=== PATIENT | male | born 1975 | race Caucasian/White ===

== ENCOUNTER 2017-05-26 15:53 | Emergency (ER) | payer OTHER ==
[~2017-05-26] VITALS: Ht 175.3 cm; Wt 96.8 kg
[~2017-05-26 15:53] MED LIST: CLR10 PO
[2017-05-26 16:02] VITALS: TEMP 36.8; Ht 175.3 cm; Wt 96.8 kg
--- NOTE | 2017-05-26 16:48 | EMERGENCY ROOM VISIT NOTE ---
History First contact with patient: 16:06 Chief Complaint: EYE ASSESSMENT Stated Complaint: SWOLLEN ITCHY EYES History of Present Illness The patient is a 42 year old male who presents to the Emergency Room with complaints of left eye swelling and itchiness. The patient states that [place] and began to develop itchiness in both of his eyes. He states that the eyes began to swell. He denies any changes in vision. He denies any pain. He took a Claritin and states that the right eye swelling has improved, but the left eye is still swollen. He has a history of seasonal allergies. He believes he is having an allergic reaction to hay. He denies any difficulty swallowing, difficulty breathing, nausea/vomiting or hives. Review of Systems A complete 10 point review of systems was reviewed with the patient with pertinent positives and negatives as per history of present illness. All else were negative. Social History Smoking Status: Never Smoker Alcohol Use: none Marital Status: Occupation Status: employed Current/Historical Medications Scheduled PRN Loratadine (Claritin), 10 MG PO DAILY PRN for Allergy Symptoms Physical Exam Vital Signs Date Time Temp Pulse Resp B/P (MAP) Pulse Ox O2 Delivery O2 Flow Rate FiO2 05/26/17 17:05 77 20 127/70 99 05/26/17 16:02 36.8 114 17 153/96 95 Room Air Right Eye Acuity: 20/20 Left Eye Acuity: 20/40 Physical Exam VITALS: Vitals are noted on the nurse's note and reviewed by myself. Vital signs stable. GENERAL: This is a 42-year-old male, in no acute distress, nondiaphoretic, well- developed well-nourished. SKIN: The skin was without rashes. EARS: External auditory canals clear, tympanic membranes pearly houser without erythema or effusion bilaterally. EYES: Pupils equal round and reactive to light and accommodation. There is periorbital edema of the left eye as well as chemosis. There is conjunctival injection. Extraocular movements are intact. There is minimal periorbital edema of the right eye. NOSE: Patent, turbinates without inflammation or discharge. MOUTH: Mucous membranes moist. Tonsils are not enlarged. Pharynx without erythema or exudate. Airway patent. NECK: Supple without nuchal rigidity. No lymphadenopathy. HEART: Regular rate and rhythm without murmurs gallops or rubs. LUNGS: Clear to auscultation bilaterally without wheezes, rales or rhonchi. NEURO: Patient was alert and oriented to person place and time. Medical Decision & Procedures Medications Administered Medications (Trade) Dose Ordered Sig/Lizzeth Route Start Time Stop Time Status Last Admin Dose Admin Diphenhydramine HCl (Benadryl Cap) 50 mg NOW STAT PO 05/26/17 16:31 05/26/17 16:33 DC 05/26/17 16:42 50 MG Prednisone (PredniSONE TAB) 50 mg NOW STAT PO 05/26/17 16:31 05/26/17 16:33 DC 05/26/17 16:42 50 MG ED Course The patient was evaluated as above. Labs were drawn and IV access was obtained. Patient was medicated with []. [] was performed and read by radiology as above. Patient was reevaluated and [] []Discharge instructions were reviewed with the patient. The patient verbalized understanding of my assessment and treatment plan and was discharged home in good condition. []Case was discussed with the [] hospitalist, []. They agreed to evaluate the patient for admission. Medical Decision Differential diagnosis includes allergic reaction, pre-orbital cellulitis, orbital cellulitis, among others. The patient was evaluated as above. His presentation is consistent with allergies. He was given a one-time dose of prednisone and instructed to take Benadryl at home for symptoms. He verbalized understanding of my assessment and treatment plan and was discharged home in good condition. Medication Reconcilliation Current Medication List: was personally reviewed by [place] Blood Pressure Screening Patient's blood pressure: Normal blood pressure Impression Primary Impression: Allergic conjunctivitis Departure Information Dispostion Home / Self-Care Condition GOOD Referrals No Doctor, Assigned (PCP) Patient Instructions My [facility] Additional Instructions You have been treated in the Emergency Department for an Allergic Reaction. You have been treated and monitored in the Emergency Department appropriately. You should take Benadryl (diphenhydramine) 25-50 mg orally every 4-6 hours until symptoms resolve. You may use [id number] antihistamine eyedrops as needed for itchiness. Follow-up with your primary care provider for any persistent symptoms. Return to the Emergency Department if your current symptoms worsen despite treatment course outlined above, or if you develop any of the following symptoms : wheezing, tongue or face swelling, tightness in your throat, shortness of breath, or fainting. Problem Qualifiers Primary Impression: Allergic conjunctivitis Laterality: left Qualified Codes: H10.12 - Acute atopic conjunctivitis, left eye
[2017-05-26 17:05] VITALS: BP 127/70; PULSE 77; O2SAT 99
== END 2017-05-26 16:55 | disposition home or self-care (01) ==
LOC: C.EDB 15:55 → C.EDD 16:55
DX: H10.12 Acute atopic conjunctivitis, left eye (principal)